=== PATIENT | male | born 1955 | race Caucasian/White ===

== ENCOUNTER 2018-09-27 09:52 | Emergency (ER) | payer SELFPAY ==
--- NOTE | 2018-09-27 09:58 | NUR ---
INFORMED BY ADMITTING THAT PT LWBS AT THIS TIME
== END 2018-09-27 09:58 | disposition left against medical advice (07) ==
LOC: MED 09:52
DX: Z53.21 Procedure and treatment not carried out due to patient leaving prior to being seen by health care provider (principal)